=== PATIENT | male | born 1965 | race Caucasian/White ===

== ENCOUNTER 2020-02-18 18:43 | Inpatient (IN) | payer OTHER ==
[~2020-02-18] VITALS: Ht 182.9 cm; Wt 96.6 kg
--- NOTE | ~2020-02-18 | OP ---
[address] [address] OPERATIVE REPORT Name: CLAY MCNEAL Room: [address] IN M.R.#: [id number] Admission: 02/18/20 Attend Phys: Rm Carmona MD Discharge: Date of : 65 Report #: [id number] THIS REPORT FOR: //name// cc: NORBERTO Mari family physician/PCP NORBERTO Mari family physician/PCP ~ THIS REPORT FOR: //name// CC: NORBERTO physician/PCP Rm Carmona DATE OF SERVICE: 02/19/2020 PREOPERATIVE DIAGNOSIS: Acute appendicitis. POSTOPERATIVE DIAGNOSIS: Acute appendicitis. OPERATION: Laparoscopic appendectomy. SURGEON: Yordan Vo MD ANESTHESIA: General. ESTIMATED BLOOD LOSS: Minimal. SPECIMEN: Appendix. DESCRIPTION OF PROCEDURE: After informed consent was obtained, the patient was brought to the operating room and placed supine. SCDs were placed and working, preoperative antibiotics were administered, general anesthesia was induced. The abdomen was prepped and draped in a usual sterile fashion. A 10 mm incision was made above the umbilicus. Fascia was incised and a trocar was placed. Pneumoperitoneum was established. A right upper quadrant and left lower quadrant 5 mm trocar was placed. The appendix was visualized in the right lower quadrant. It was inflamed, consistent with appendicitis. The appendix was grasped. It was retracted anteriorly. The mesoappendix was ligated with the LigaSure device. There was excellent hemostasis. The base of the appendix was then stapled off with a BELEN blue load stapler. The appendix was removed through an Endopouch. The fascia was closed with a [id number]-zauzv 0 Vicryl. Skin was closed with 4-0 Monocryl. Incisions were sealed with Dermabond. COMPLICATIONS: [place] [address] OPERATIVE REPORT Name: CLAY MCNEAL Room: [address]#: [id number] Admission: 02/18/20 Attend Phys: Rm Carmona MD Discharge: Date of : 65 Report #: [id number] DISPOSITION: The patient was taken to recovery in satisfactory condition. By: [id number] Vo MD /ash
[~2020-02-18 18:43] MED LIST: AMITRIPTYLINE H25 M4 PO; ASPIR 8181 MG PO; LISINOPRIL10 MG PO
[2020-02-18 18:59] VITALS: BP 158/100
[2020-02-18 19:13] LABS: ABSOLUTE BASOPHILS 0.1 thou/uL (0.0-0.2); ABSOLUTE EOSINOPHILS 0.2 thou/uL (0.0-0.7); ABSOLUTE LYMPHOCYTES 1.4 thou/uL (0.8-5.3); ABSOLUTE MONOCYTES 0.6 thou/uL (0.0-1.2); ABSOLUTE NEUTROPHILS 5.4 thou/uL (1.6-8.1); BASOPHILS 0.7 %; EOSINOPHILS 3.1 %; HEMATOCRIT 52.3 % (42.0-52.0); HEMOGLOBIN 18.3 gm/dL (14.0-18.0); LYMPHOCYTES 18.6 %; MCH 39.2 pg (26.0-34.0); MCV 111.8 fL (80.0-100.0); MONOCYTES 7.8 %; MPV 7.8 fl. (7.2-11.1); NUCLEATED RBCS 0 /100WBC; PLATELET COUNT* 217 thou/uL (150-400); POLYS 69.8 %; RBC 4.68 mil/uL (4.50-6.00); RDW-CV 14.7 % (10.5-14.5); WBC 7.7 thou/uL (4.0-11.0)
[2020-02-18 19:32] LABS: CREATININE 0.9 mg/dL (0.6-1.3); POTASSIUM 3.9 mmol/L (3.5-5.1)
[2020-02-18 19:36] LABS: ALBUMIN 3.6 g/dL (3.4-5.0); TOTAL BILIRUBIN 0.7 mg/dL (<0.1-1.0); TOTAL PROTEIN 8.4 g/dL (6.4-8.2)
[2020-02-18 20:22] LABS: ANISOCYTOSIS Occasional; LARGE PLATELETS RARE; PLATELET ESTIMATE ADEQUATE
[2020-02-18 20:23] LABS: MACROCYTES 2+
[2020-02-18 20:27] LABS: URINE BLOOD 2+ (Negative); URINE CLARITY CLEAR; URINE COLOR YELLOW; URINE GLUCOSE-RANDOM NEGATIVE (Negative); URINE KETONES NEGATIVE (Negative); URINE LEUKOCYTES-REFLEX NEGATIVE (Negative); URINE NITRITE-REFLEX NEGATIVE (Negative); URINE PROTEIN TRACE (Negative); URINE SPECIFIC GRAVITY 1.015 (1.005-1.030); URINE UROBILINOGEN 0.2 E.U./dl (0.2-1.0)
[2020-02-18 20:28] LABS: ICTOTEST (BILI CONFIRMATORY) Negative (Negative); URINE BILIRUBIN 1+ (Negative)
[2020-02-18 20:37] LABS: SQUAMOUS 0-3 Few /LPF (0-3)
[2020-02-18 20:38] LABS: BACTERIA-REFLEX None Seen /HPF (None Seen); CASTS None Seen /LPF (None Seen); CRYSTALS None Seen /LPF (None Seen); MUCUS 0-3 Light strn/LPF (None Seen); URINE RBC 0-2 Rare /HPF (0-2); URINE WBC-REFLEX 0-5 Rare /HPF (0-5)
[2020-02-18 21:37] VITALS: BP 160/100
[2020-02-18 21:48] VITALS: BP 155/75
--- NOTE | 2020-02-19 02:19 | NUR ---
02/18/20 @ 2145 ALERT AND ORIENTED X 4 MALE PATIENT TO ROOM 114 FROM ER IN STABLE CONDITION. ORIENTED TO ROOM, BED, TV, NURSE CALL AND ROUTINE. ADMISSION ROUTINES IN PROGRESS. VITAL SIGNS STABLE. CONTINUE TO MONITOR.
--- NOTE | 2020-02-19 04:49 | NUR ---
PATIENT HAS REMAINED ALERT AND ORIENTED X 4 THROUGHOUT THE SHIFT AND RESTING QUIETLY ON HOURLY ROUNDS. UP INDEPENDENTLY IN THE ROOM. NPO AT 0200 PER NEW ORDER RECEIVED BY DR. MEJIA. PATIENT HAD REQUESTED A NICOTINE PATCH. THIS WAS DENIED. PHYSICIAN STATES BECAUSE OF POOR HEALING EFFECTS. PATIENT NOTIFIED AT THE TIME OF ORDER AND WAS AGREEABLE. PRE-OP ROUTINES IN PROGRESS. PATIENT HAS DENIED NEED FOR PAIN OR NAUSEA MEDICATIONS. CONTINUE TO MONITOR.
[2020-02-19 07:25] VITALS: BP 134/87
[2020-02-19 08:20] VITALS: BP 134/87
--- NOTE | 2020-02-19 09:48 | EKG ---
[place] [address] ELECTROCARDIOGRAM REPORT Name: CLAY MCNEAL Room: [address] ADM IN ..#: [id number] Admission: 02/18/20 Attend Phys: Rm Carmona MD Discharge: Date of : 65 Date of Service: 02/18/201923 Report #: [id number] THIS REPORT FOR: //name// [facility] ED Test Date: 2020-02-18 Test Time: 19:24:26 Pat Name: CLAY MCNEAL Department: Room: [facility] Gender: M [employer] Leader: [place] : 1965 Requested By: Ignacio Keene Order Number: [id number] MD: Devin Espinal Measurements Intervals [place] Rate: 83 P: 71 [place]: 154 QRS: 61 QRSD: 108 T: 69 QT: 377 QTc: 443 Interpretive Statements Sinus rhythm Left atrial enlargement Compared to ECG 08/20/2017 10:36:57 Prolonged QT interval no longer present Electronically Signed On 02-19-2020 9:47:05 CDT by Devin Espinal [email or web address] <ELECTRONICALLY SIGNED> By: Alex Espinal MD, [facility] 02/19/20 0947 23 23 Alex Espinal MD, [facility] /EPI
[2020-02-19 14:16] VITALS: BP 146/98
[2020-02-19 14:20] VITALS: BP 146/98
[2020-02-19] MEDS ORDERED: NORCO 5-325 TA1 EAC1 PO (14:31)
--- NOTE | 2020-02-19 14:41 | NUR ---
PT RETURNED FROM SURGERY. PT ALERT AND ORIENTED. PT DENIES ANY PAIN AT THIS TIME. PT DENIES ANY NEEDS AT THIS TIME. FALL RISK PRECAUTIONS IN PLACE. HOURLY ROUNDING COMPLETED. WILL CONTINUE TO MONITOR.
--- NOTE | 2020-02-19 16:53 | NUR ---
PT GIVEN DISCHARGE INFORMATION. CARE NOTES AND PRESCRIPTIONS, IV REMOVED. PT BELONGINGS GATHERED. PT LEFT VIA WHEELCHAIR WITH NURSING STAFF TO HOME. FALL RISK PRECAUTIONS IN PLACE. HOURLY ROUNDING COMPLETED.
[2020-02-19 16:54] VITALS: BP 146/98
--- NOTE | 2020-02-24 15:08 | PATH ---
[address] [address] PATHOLOGY RPT PROCEDURE Name: CLAY EDOUARD Room: [address] IN M.R.#: [id number] Admission: 02/18/20 Date of : 65 Discharge: 02/19/20 Report #: [id number] Path Case #: [id number] [facility] Accession Number: [id number] . 01 Material submitted: . appendix - APPENDIX . 01 Clinical history: . Acute appendicitis . 02 Diagnosis: Appendix: - Acute appendicitis and serositis with incidental small hyperplastic polyp near distal tip. (RONNI/db; 02/24/2020) LBQ 02/24/2020 1244 Local . 02 Electronically signed: . Quinten Naylor MD, Pathologist NPI- [id number] . 01 Gross description: . The specimen is received in formalin, labeled "Edouard, Clay, appendix" and consists of an appendix measuring 6.1 cm in length and up to 0.9 cm in diameter with mesoappendix measuring 1.6 cm thick. The serosa is pink-dickens with thin adhesions and hemorrhage at the tip. The margin is closed with a line of kia and inked black. Sectioning reveals a possible perforation at the tip. [employer] sections are submitted in A1-A2. (SD; 02/22/2020) . After initial microscopic examination the remainder of the appendix is submitted in A3-A5. ([facility]; 02/23/2020) SYU/SYU 02/23/2020 [facility]0 Local . 02 Pathologist provided ICD-10: K35.80 . 02 CPT . 022114 Specimen Comment: A courtesy copy of this report has been sent to [phone] Specimen Comment: Report sent to / DR HARO Performed at: [address] [id number] MD Víctor Huerta MD Phone: [phone] Performed at: 02 [place] [address] PATHOLOGY RPT PROCEDURE Name: CLAY EDOUARD COREY Room: [address] IN M.R.#: [id number] Admission: 02/18/20 Date of : 65 Discharge: 02/19/20 Report #: [id number] Path Case #: [id number] [address] [place]UBRIE Maldonado [id number] MD Quinten Naylor MD Phone: [phone]
== END 2020-02-19 16:54 | disposition home or self-care (01) | DRG 343 ==
LOC: M.ERS 18:43 → M.TBA-ER 20:54 → M.ORTHSURG 20:54
PROVIDERS: Physician Assistant; ADMIT Surgery; ATTEND Surgery
PROC: 0DTJ4ZZ Resection of Appendix, Percutaneous Endoscopic Approach (ICD-10-PCS; principal; 2020-02-19)
DX: K35.80 Unspecified acute appendicitis (principal); I10 Essential (primary) hypertension; F41.9 Anxiety disorder, unspecified; F17.210 Nicotine dependence, cigarettes, uncomplicated; Z79.899 Other long term (current) drug therapy; Z79.82 Long term (current) use of aspirin; Z72.89 Other problems related to lifestyle